=== PATIENT | male | born 1945 | race Caucasian/White ===

== ENCOUNTER 2017-09-21 08:48 | Emergency (ER) | payer MEDICARE, OTHER ==
[~2017-09-21] VITALS: Ht 170.2 cm; Wt 90.0 kg
[~2017-09-21 08:48] MED LIST: ALBU6.7H INH; CEFT500T PO; HYDR12.56 PO; IPRA17I INH; LISI2.5T3 PO; MOME17I; ZITH500T PO
[2017-09-21 08:49] VITALS: BP 173/85; PULSE 77; RESP 18; TEMP 98.6; O2SAT 95
[2017-09-21] MEDS ORDERED: MOME17I EACH NARE (09:10)
[2017-09-21] MEDS ORDERED: COLA100C5 PO ×2 (09:10)
[2017-09-21] MEDS ORDERED: PRAV10TA PO (09:10)
[2017-09-21] MEDS ORDERED: IPRA17I INH (09:10)
[2017-09-21] MEDS ORDERED: LORA0.5T PO (09:10)
[2017-09-21] MEDS ORDERED: ALBU6.7H INH (09:10)
[2017-09-21] MEDS: RESP: ALBUTEROL 2.5 MG/IPRATROPIUM 0.5 MG NEB (SCH) INH ×2 (09:25→09:26)
[2017-09-21] MEDS ORDERED: ZITHTAB PO (09:42)
[2017-09-21] MEDS ORDERED: PRED20 PO (09:42)
--- NOTE | 2017-09-21 09:42 | PD ---
HPI . Coughing and wheezing Chief Complaint: Respiratory Symptoms Time Seen by Provider: 09:07 Travel History International Travel<30 days: No Contact w/Intl Traveler<30days: No Traveled to known affect area: No History of Present Illness HPI This patient presents complaining with coughing and wheezing. He has a history of asthma. His symptoms started about 2 days ago. He is from [place] and states that he was seen in [place] onset of his symptoms 2 days ago and was given a breathing treatment. He has subsequently come here for the [employer]. He states that he was instructed in [place] to come here for a nebulizer treatment when he got here. He states that he chronically uses an albuterol MDI for his asthma. The patient denies any fever but does report recent sputum production. Symptoms are mild and have no modifying factors. PFSH Past Medical History Arthritis: Yes Asthma: Yes Blood Disorders: No Anxiety: Yes Depression: Yes Heart Rhythm Problems: No Cancer: No Cardiovascular Problems: Yes High Cholesterol: Yes Chemotherapy: No Chest Pain: No Congestive Heart Failure: No COPD: No Diabetes: Yes Endocrine: Yes Gastrointestinal Disorders: Yes GERD: Yes Genitourinary: No Hepatitis: No Hiatal Hernia: No Hypertension: Yes Immune Disorder: No Musculoskeletal: Yes Neurologic: No Psychiatric: Yes Reproductive: No Respiratory: Yes (ASTHMA) Myocardial Infarction: No Radiation Therapy: No Sleep Apnea: Yes Thyroid Disease: No Ulcer: Yes Tetanus Vaccination: Unknown Influenza Vaccination: No Past Surgical History Abdominal Surgery: Yes (LEFT HERNIA) Appendectomy: No Cardiac Surgery: No Cholecystectomy: No Ear Surgery: No Endocrine Surgery: No Eye Surgery: No Genitourinary Surgery: No Gynecologic Surgery: No Oral Surgery: No Thoracic Surgery: No Other Surgery: Yes (TESTICLE HERNIA REPAIR) Social History Alcohol Use: Yes (BEER OCCASIONALLY) Tobacco Use: No Substance Use: No Allergies-Medications (Allergen,Severity, Reaction): Coded Allergies: No Known Allergies (Verified Adverse Reaction, Unknown, 09/21/17) Reported Meds & Prescriptions Reported Meds & Active Scripts Active Reported Nasonex Nasal [place] (Mometasone Furoate) 50 Mcg/Act Naspr 1 [place] EACH NARE DAILY Atrovent HFA 12.9 GM Inh (Ipratropium [place]) 17 Mcg/Actuation Aer 2 Puff INH Q4HR PRN Proventil Hfa 6.7 GM Inh (Albuterol Sulfate) 90 Mcg/Act Aer 2 Puff INH Q4H PRN Lorazepam 0.5 Mg Tab 0.5 Mg PO Q6H PRN Colace (Docusate Sodium) 100 Mg Capsule 100 Mg PO BID Colace (Docusate Sodium) 100 Mg Capsule 100 Mg PO HS Pravastatin 10 Mg Tab 10 Mg PO DAILY Nasonex (Mometasone Furoate) 17 Gm [place] 1 Spr NA DAILY Review of Systems Except as stated in HPI: all other systems reviewed are Neg General / Constitutional: No: Fever, Chills Respiratory: Positive: Cough, Wheezing, No: Shortness of Breath Physical Exam Narrative GENERAL: Awake and alert and in no acute distress. SKIN: Warm and dry. HEAD: Normocephalic/atraumatic. EYES: Pupils are equal. Extraocular movements are intact. NECK: Normal range of motion. CARDIOVASCULAR: Regular rate and rhythm. RESPIRATORY: Nonlabored respirations. Good air movement but diffuse coarse expiratory wheezing. MUSCULOSKELETAL: Atraumatic. NEUROLOGICAL: Nonfocal. PSYCHIATRIC: Appropriate mood and affect. Data Data Last Documented VS Vital Signs Date Time Temp Pulse Resp B/P (MAP) Pulse Ox O2 Delivery O2 Flow Rate FiO2 09/21/17 08:49 98.6 77 18 173/85 (114) 95 Room Air Orders Orders Albuterol-Ipratropium Neb (Duoneb Neb) (09/21/17 09:30) [facility] Medical Decision Making Medical Screen Exam Complete: Yes Emergency Medical Condition: Yes Differential Diagnosis My differential diagnosis includes but is not limited to asthma, COPD, bronchitis, pneumonia, CHF Narrative Course This is a patient with asthma who presents complaining with wheezing and purulent sputum production. He looks good. He does have diffuse coarse expiratory wheezing. He will be treated here with 3 DuoNeb times. He will be discharged home since for a Z-Stevie and prednisone. Diagnosis Primary Impression: Acute exacerbation of extrinsic asthma Patient Instructions: Asthma (DC), General Instructions Med/Other Pt SpecificInfo: Prescription(s) given Scripts Prednisone (Prednisone) 20 Mg Tab 60 MG PO DAILY for 5 Days, #15 TAB 0 Refills Prov: Tricia Kaiser MD 09/21/17 Azithromycin (Zithromax Z-Stevie) 250 Mg Dspk 250 MG PO DIRECTED for Infection, #1 DSPK 0 Refills 500 MG (2 tabs) day 1, then 1 tab days 2-5. Prov: Tricia Kaiser MD 09/21/17 Disposition: 01 DISCHARGE HOME Condition: Stable Tricia Kaiser MD Sep 21, 2017 09:42
[2017-09-21 10:03] VITALS: BP 163/69; PULSE 90; RESP 16; O2SAT 95
== END 2017-09-21 10:04 | disposition home or self-care (01) ==
LOC: NEPD 08:48
DX: J45.901 Unspecified asthma with (acute) exacerbation (principal); R05 Cough; E11.9 Type 2 diabetes mellitus without complications; I10 Essential (primary) hypertension
CPT/HCPCS: 94640; 94664; 99283

== ENCOUNTER 2017-09-22 19:19 | Inpatient (IN) | payer MEDICARE ==
[~2017-09-22] VITALS: Ht 170.2 cm; Wt 88.6 kg
[~2017-09-22 19:19] MED LIST changes: -CEFT500T PO; +COLA100C5 PO; -HYDR12.56 PO; -LISI2.5T3 PO; +LORA0.5T PO; +MOME17I EACH NARE; +PRAV10TA PO; +PRED20 PO; -ZITH500T PO; +ZITHTAB PO
[2017-09-22 19:21] VITALS: BP 183/62; PULSE 81; RESP 18; TEMP 97.9; O2SAT 96
[2017-09-22 19:35] VITALS: BP 178/98; PULSE 79; RESP 18; O2SAT 95
--- NOTE | 2017-09-22 19:43 | PD ---
HPI Chief Complaint: Respiratory Symptoms Time Seen by Provider: 19:43 Travel History International Travel<30 days: No Contact w/Intl Traveler<30days: No Traveled to known affect area: No History of Present Illness HPI 71-year-old male with history of CAD, hypertension, asthma, pacemaker placement , stroke with right-sided deficit, presents to the emergency department for evaluation of worsening shortness of breath. Patient is visiting [facility] race week. He came in yesterday for evaluation of what he thought was an asthma exacerbation. He had a cold last week where he had increased cough and chest congestion but this seemed to have gotten better. He denies any fever or chills. States he "feels awful." States it is the skull to take a deep breath. Denies any pain. Denies any other symptoms at this time. PFSH Past Medical History Arthritis: Yes Asthma: Yes Blood Disorders: No Anxiety: Yes Depression: Yes Heart Rhythm Problems: No Cancer: No Cardiovascular Problems: Yes High Cholesterol: Yes Chemotherapy: No Chest Pain: No Congestive Heart Failure: No COPD: No Diabetes: Yes Diminished Hearing: No Endocrine: Yes Gastrointestinal Disorders: Yes GERD: Yes Genitourinary: No Hepatitis: No Hiatal Hernia: No Hypertension: Yes Immune Disorder: No Musculoskeletal: Yes Neurologic: No Psychiatric: Yes Reproductive: No Respiratory: Yes (ASTHMA) Myocardial Infarction: No Radiation Therapy: No Sleep Apnea: Yes Thyroid Disease: No Ulcer: Yes Influenza Vaccination: Yes Past Surgical History Abdominal Surgery: Yes (LEFT HERNIA) Appendectomy: No Cardiac Surgery: No Cholecystectomy: No Ear Surgery: No Endocrine Surgery: No Eye Surgery: No Genitourinary Surgery: No Gynecologic Surgery: No Oral Surgery: No Thoracic Surgery: No Other Surgery: Yes (TESTICLE HERNIA REPAIR) Social History Alcohol Use: Yes (BEER OCCASIONALLY) Tobacco Use: No Substance Use: No Allergies-Medications (Allergen,Severity, Reaction): Coded Allergies: No Known Allergies (Verified Adverse Reaction, Unknown, 09/21/17) Reported Meds & Prescriptions Reported Meds & Active Scripts Active Prednisone 20 Mg Tab 60 Mg PO DAILY 5 Days Zithromax Z-Stevei (Azithromycin) 250 Mg Dspk 250 Mg PO DIRECTED 500 MG (2 tabs) day 1, then 1 tab days 2-5. Reported Nasonex Nasal [place] (Mometasone Furoate) 50 Mcg/Act Naspr 1 [place] EACH NARE DAILY Atrovent HFA 12.9 GM Inh (Ipratropium [place]) 17 Mcg/Actuation Aer 2 Puff INH Q4HR PRN Proventil Hfa 6.7 GM Inh (Albuterol Sulfate) 90 Mcg/Act Aer 2 Puff INH Q4H PRN Lorazepam 0.5 Mg Tab 0.5 Mg PO Q6H PRN Colace (Docusate Sodium) 100 Mg Capsule 100 Mg PO BID Colace (Docusate Sodium) 100 Mg Capsule 100 Mg PO HS Pravastatin 10 Mg Tab 10 Mg PO DAILY Review of Systems Except as stated in HPI: all other systems reviewed are Neg Physical Exam Narrative GENERAL: Well-nourished, chronically ill male patient, sitting in bed, in no acute distress. Audible rales with respirations as a walk in the room. SKIN: Focused skin assessment warm/dry. HEAD: Atraumatic. Normocephalic. Slight right sided facial paralysis. EYES: Pupils equal and round. No scleral icterus. No injection or drainage. ENT: No nasal bleeding or discharge. Mucous membranes pink and moist. NECK: Trachea midline. No JVD. CARDIOVASCULAR: Regular rate and rhythm. RESPIRATORY: No accessory muscle use. Coarse throughout, diminished bases, with crackles. Breath sounds equal bilaterally. GASTROINTESTINAL: Abdomen soft, non-tender, nondistended. Hepatic and splenic margins not palpable. MUSCULOSKELETAL: No obvious deformities. No clubbing. No cyanosis. No edema. NEUROLOGICAL: Awake and alert. No obvious cranial nerve deficits. Motor grossly within normal limits. Normal speech. PSYCHIATRIC: Appropriate mood and affect; insight and judgment normal. Data Data Last Documented VS Vital Signs Date Time Temp Pulse Resp B/P (MAP) Pulse Ox O2 Delivery O2 Flow Rate FiO2 09/22/17 21:11 85 18 161/77 (105) 97 Nasal Cannula 2.00 09/22/17 19:21 97.9 Orders Orders Complete Blood Count With Diff (09/22/17 19:53) Basic Metabolic Panel (Bmp) (09/22/17 19:53) Ckmb (Isoenzyme) Profile (09/22/17 19:53) Troponin I (09/22/17 19:53) Influenzae A/B Antigen (09/22/17 19:53) Iv Access Insert/Monitor (09/22/17 19:53) Electrocardiogram (2/14/18 19:53) Ecg Monitoring (09/22/17 19:53) Oximetry (09/22/17 19:53) Oxygen Administration (09/22/17 19:53) Chest, Single Ap (09/22/17 19:53) Sodium Chloride 0.9% Flush (Ns Flush) (09/22/17 20:00) Methylprednisolone So Succ Inj (Solumedr (09/22/17 20:00) Albuterol-Ipratropium Neb (Duoneb Neb) (09/22/17 20:00) B-Type Natriuretic Peptide (09/22/17 20:05) Labs Laboratory Tests Test 09/22/17 20:05 White Blood Count 9.9 TH/MM3 Red Blood Count 4.50 MIL/MM3 Hemoglobin 14.3 GM/DL Hematocrit 41.7 % Mean Corpuscular Volume 92.8 FL Mean Corpuscular Hemoglobin 31.8 PG Mean Corpuscular Hemoglobin Concent 34.3 % Red Cell Distribution Width 13.4 % Platelet Count 164 TH/MM3 Mean Platelet Volume 8.0 FL Neutrophils (%) (Auto) 78.8 % Lymphocytes (%) (Auto) 14.1 % Monocytes (%) (Auto) 7.0 % Eosinophils (%) (Auto) 0.0 % Basophils (%) (Auto) 0.1 % Neutrophils # (Auto) 7.8 TH/MM3 Lymphocytes # (Auto) 1.4 TH/MM3 Monocytes # (Auto) 0.7 TH/MM3 Eosinophils # (Auto) 0.0 TH/MM3 Basophils # (Auto) 0.0 TH/MM3 CBC Comment DIFF FINAL Differential Comment Blood Urea Nitrogen 16 MG/DL Creatinine 0.88 MG/DL Random Glucose 149 MG/DL Calcium Level 8.7 MG/DL Sodium Level 142 MEQ/L Potassium Level 3.5 MEQ/L Chloride Level 106 MEQ/L Carbon Dioxide Level 27.8 MEQ/L Anion Gap 8 MEQ/L Estimat Glomerular Filtration Rate 85 ML/MIN Total Creatine Kinase 99 U/L Troponin I 0.06 NG/ML B-Type Natriuretic Peptide 160 PG/ML MDM Medical Decision Making Medical Screen Exam Complete: Yes Emergency Medical Condition: Yes Medical Record Reviewed: Yes Differential Diagnosis ACS versus CHF versus pneumonia versus influenza versus COPD exacerbation versus asthma exacerbation Narrative Course 71-year-old male presents to emergency department for evaluation of worsening shortness of breath. Patient appears nontoxic but he does have audible reveals as I walk in the room. His oxygen saturation is 92% on room air and he is placed on 2 L nasal cannula. Vital signs are otherwise stable. Patient is given DuoNeb treatment and Solu-Medrol IV. Laboratory Tests Test 09/22/17 20:05 White Blood Count 9.9 TH/MM3 Red Blood Count 4.50 MIL/MM3 Hemoglobin 14.3 GM/DL Hematocrit 41.7 % Mean Corpuscular Volume 92.8 FL Mean Corpuscular Hemoglobin 31.8 PG Mean Corpuscular Hemoglobin Concent 34.3 % Red Cell Distribution Width 13.4 % Platelet Count 164 TH/MM3 Mean Platelet Volume 8.0 FL Neutrophils (%) (Auto) 78.8 % Lymphocytes (%) (Auto) 14.1 % Monocytes (%) (Auto) 7.0 % Eosinophils (%) (Auto) 0.0 % Basophils (%) (Auto) 0.1 % Neutrophils # (Auto) 7.8 TH/MM3 Lymphocytes # (Auto) 1.4 TH/MM3 Monocytes # (Auto) 0.7 TH/MM3 Eosinophils # (Auto) 0.0 TH/MM3 Basophils # (Auto) 0.0 TH/MM3 CBC Comment DIFF FINAL Differential Comment Blood Urea Nitrogen 16 MG/DL Creatinine 0.88 MG/DL Random Glucose 149 MG/DL Calcium Level 8.7 MG/DL Sodium Level 142 MEQ/L Potassium Level 3.5 MEQ/L Chloride Level 106 MEQ/L Carbon Dioxide Level 27.8 MEQ/L Anion Gap 8 MEQ/L Estimat Glomerular Filtration Rate 85 ML/MIN Total Creatine Kinase 99 U/L Troponin I 0.06 NG/ML B-Type Natriuretic Peptide 160 PG/ML EKG is complete and reviewed with my attending physician. At work and x-ray are completed and also reviewed by myself and my attending. Patient continues to have shortness of breath. Absolutely no pain. Troponin is 0.06. BNP is 160. I discussed the patient with Dr. Waldrop. [facility]. Diagnosis Primary Impression: Dyspnea Qualified Codes: R06.03 - Acute respiratory distress Additional Impression: Elevated troponin Admitting Information Admitting Physician Requests: Observation Condition: Stable Roselyn Jackson Sep 22, 2017 19:43
[2017-09-22] MEDS ORDERED: methylPREDNISolone SOD SUCC 125 MG/2 ML VIAL IV PUSH ONE (20:00)
[2017-09-22] MEDS ORDERED: SODIUM CHLORIDE 0.9% FLUSH 10 ML FLUSH IVF PRN (20:00)
[2017-09-22] MEDS: RESP: ALBUTEROL 2.5 MG/IPRATROPIUM 0.5 MG NEB (SCH) INH ×2 (20:02→20:03)
[2017-09-22 20:37] LABS: AUTOMATED NEUTROPHIL # 7.8 TH/MM3 (1.8-7.7); BASOPHIL % 0.1 % (0.0-2.0); HEMATOCRIT 41.7 % (39.0-51.0); HEMOGLOBIN 14.3 GM/DL (13.0-17.0); LYMPH % 14.1 % (9.0-44.0); LYMPHOCYTE # 1.4 TH/MM3 (1.0-4.8); MEAN CELL VOLUME 92.8 FL (80.0-100.0); MEAN CORPUSCULAR HEMOGLOBIN 31.8 PG (27.0-34.0); MEAN CORPUSCULAR HGB CONC 34.3 % (32.0-36.0); MONOCYTE # 0.7 TH/MM3 (0-0.9); NEUT % 78.8 % (16.0-70.0); PLATELET COUNT 164 TH/MM3 (150-450); RED CELL DISTRIBUTION WIDTH 13.4 % (11.6-17.2); WHITE BLOOD COUNT 9.9 TH/MM3 (4.0-11.0)
--- NOTE | 2017-09-22 20:47 | RADRPT ---
EXAM DATE/TIME: 09/22/2017 20:24 [facility] COMPARISON: No previous studies available for comparison. INDICATIONS : Cough and congestion for 4 days. MEDICAL HISTORY : Hypertension. Hypercholesterolemia. Gastroesophageal reflux disease. Asthma. Arthritis. Diabetes. SURGICAL HISTORY : Pacemaker. ENCOUNTER: Initial ACUITY: 4 - 6 days PAIN SCORE: 0/10 LOCATION: Bilateral chest FINDINGS: The lungs are clear without infiltrate, nodule, or mass. There is no appreciable pleural effusion fo r technique. Heart and mediastinum are unremarkable. Left subclavian transvenous pacer wires are pre sent with tips in the right atrium and right ventricle. CONCLUSION: No acute cardiopulmonary disease. Nithin Marvin MD on September 22, 2017 at 20:46 Board Certified Radiologist. This report was verified electronically.
[2017-09-22 20:55] LABS: BICARBONATE 27.8 MEQ/L (21.0-32.0); CALCIUM 8.7 MG/DL (8.5-10.1); CREATININE 0.88 MG/DL (0.60-1.30)
[2017-09-22 21:00] LABS: TROPONIN I 0.06 NG/ML (0.02-0.05)
[2017-09-22 21:11] VITALS: BP 161/77; PULSE 85; RESP 18; O2SAT 97
[2017-09-22] MEDS ORDERED: NALOXONE HCL 0.4 MG/ML AMP IV PUSH PRN (21:45)
[2017-09-22] MEDS ORDERED: SODIUM CHLORIDE 0.9% FLUSH 10 ML FLUSH IV FLUSH PRN (21:45)
[2017-09-22 21:55] VITALS: O2SAT 97
[2017-09-22] MEDS ORDERED: IOHEXOL 350 MG/ML 10 ML VIAL (for RAD DIAG) IVCONTRAST ONE (22:29)
[2017-09-22] MEDS ORDERED: ASPIRIN 81 MG CHEW TAB CHEW ONE (22:30)
[2017-09-23] VITALS (10 sets, daily range): BP systolic 133–158; BP diastolic 63–90; PULSE 65–77; RESP 18–20; TEMP 97.1–98; O2SAT 94–98
[2017-09-23 04:05] LABS: TROPONIN I 0.06 NG/ML (0.02-0.05)
--- NOTE | 2017-09-23 04:43 | HHI.HP ---
HPI [facility] Primary Care Physician Unknown Admission Diagnosis dyspnea; elevated trop Diagnoses: Travel History International Travel<30 Days: No Contact w/Intl Traveler <30 Da: No Traveled to Known Affected Are: No History of Present Illness short of breath 2 days no fever no n/v/d/ coughing a lot no chest pains or palpitations no perhipheral edema no blood in stool or urine except last week- was straining himself to go - hemorhoid bleed per pt- red color, minimal amoutn no abdominal pain went by plane to [place] from [facility] on wednesday Review of Systems Except as stated in HPI: all other systems reviewed are Neg Past Family Social History Past Medical History htn asthma never been a smoker last ER visit- was couple of years ago pneumonia- 3 yrs ago ppm 3 yrs ago cva- on asa gerd Past Surgical History hernia sx rotator cuff sx Allergies: Coded Allergies: No Known Allergies (Verified Allergy, Unknown, 09/22/17) Family History father- heart problems Social History never smoked drinks etoh a few times a week no drugs Physical Exam Vital Signs Vital Signs Date Time Temp Pulse Resp B/P (MAP) Pulse Ox O2 Delivery O2 Flow Rate FiO2 09/23/17 00:07 97.6 70 20 143/74 (97) 98 09/22/17 21:55 97 Nasal Cannula 2.00 09/22/17 21:11 85 18 161/77 (105) 97 Nasal Cannula 2.00 09/22/17 19:35 79 18 178/98 (124) 95 09/22/17 19:21 97.9 81 18 183/62 (102) 96 Room Air Physical Exam GENERAL: This is a well-nourished, well-developed patient, in no apparent distress. SKIN: No rashes, ecchymoses or lesions. Cool and dry. HEAD: Atraumatic. Normocephalic. No temporal or scalp tenderness. EYES: No scleral icterus. No injection or drainage. ENT: Nose without bleeding, purulent drainage or septal hematoma. Airway patent. NECK: Trachea midline. No JVD Supple, nontender, no meningeal signs. CARDIOVASCULAR: Regular rate and rhythm without murmurs, gallops, or rubs. RESPIRATORY: Upper airway congestion with audible wheezing. GASTROINTESTINAL: Abdomen soft, non-tender, nondistended. No guarding. MUSCULOSKELETAL: Extremities without clubbing, cyanosis, or edema. . No calf tenderness. NEUROLOGICAL: Awake and alert. . Motor and sensory grossly within normal limits. Normal speech. left facial droop chronic Laboratory Laboratory Tests Test 09/22/17 20:05 09/23/17 03:05 White Blood Count 9.9 Red Blood Count 4.50 Hemoglobin 14.3 Hematocrit 41.7 Mean Corpuscular Volume 92.8 Mean Corpuscular Hemoglobin 31.8 Mean Corpuscular Hemoglobin Concent 34.3 Red Cell Distribution Width 13.4 Platelet Count 164 Mean Platelet Volume 8.0 Neutrophils (%) (Auto) 78.8 Lymphocytes (%) (Auto) 14.1 Monocytes (%) (Auto) 7.0 Eosinophils (%) (Auto) 0.0 Basophils (%) (Auto) 0.1 Neutrophils # (Auto) 7.8 Lymphocytes # (Auto) 1.4 Monocytes # (Auto) 0.7 Eosinophils # (Auto) 0.0 Basophils # (Auto) 0.0 CBC Comment DIFF FINAL Differential Comment Blood Urea Nitrogen 16 Creatinine 0.88 Random Glucose 149 Calcium Level 8.7 Sodium Level 142 Potassium Level 3.5 Chloride Level 106 Carbon Dioxide Level 27.8 Anion Gap 8 Estimat Glomerular Filtration Rate 85 Total Creatine Kinase 99 81 Troponin I 0.06 0.06 B-Type Natriuretic Peptide 160 Date/Time Source Procedure Growth Status 09/22/17 20:05 Nasal Washing Influenza Types A,B Antigen (KIZZY) - Final NEGATIVE FOR FLU A AND B ANTIGEN.... Complete Result Diagram: 09/22/17200409/22/172004 Imaging Last [address] Angiography 09/23/17 0000 Signed Impressions: Service Date/Time: September 05:12 - CONCLUSION: 1. No PE. 2. Dependent atelectatic changes are seen with left lower lobe pleural-based nodular focus likely related however followup CT chest in 3 months recommended. 3. Hiatal hernia. 4. Atherosclerosis. 5. Subtle right upper lobe ground glass infiltrate. Richie Sanches MD Chest X-Ray 09/22/171952 Signed Impressions: Service Date/Time: Friday, September 22, 2017 20:24 - CONCLUSION: No acute cardiopulmonary disease. MD Alissa Yarbrough VTE Risk Assessment Alissa VTE Risk Assessment: Mod/High Risk (score >= 2) Caprini Risk Assessment Model Point Value = 1 Point Value = 2 Point Value = 3 Point Value = 5 Age 41-60 Minor surgery BMI > 25 kg/m2 Swollen legs Varicose veins or History of unexplained or recurrent spontaneous Oral contraceptives or hormone replacement Sepsis (< 1 month) Serious lung disease, including pneumonia (< 1 month) Abnormal pulmonary function Acute myocardial infarction Congestive heart failure (< 1 month) History of inflammatory bowel disease Medical patient at bed rest Age 61-74 Arthroscopic surgery Major open surgery (> 45 min) Laparoscopic surgery (> 45 min) Malignancy Confined to bed (> 72 hours) Immobilizing plaster cast Central venous access Age >= 75 History of VTE Family history of VTE Factor V Leiden Prothrombin [id number] Lupus anticoagulant Anticardiolipin antibodies Elevated serum homocysteine Heparin-induced thrombocytopenia Other congenital or acquired thrombophilia Stroke (< 1 month) Elective arthroplasty Hip, pelvis, or leg fracture Acute spinal cord injury (< 1 month) Prophylaxis Regimen Total Risk Factor Score Risk Level Prophylaxis Regimen 0-1 Low Early ambulation 2 Moderate Order ONE of the following: *Sequential Compression Device (SCD) *Heparin 5000 units SQ BID 3-4 Higher Order ONE of the following medications: *Heparin 5000 units SQ TID *Enoxaparin/Lovenox 40 mg SQ daily (WT < 150 kg, CrCl > 30 mL/min) *Enoxaparin/Lovenox 30 mg SQ daily (WT < 150 kg, CrCl > 10-29 mL/min) *Enoxaparin/Lovenox 30 mg SQ BID (WT < 150 kg, CrCl > 30 mL/min) AND/OR *Sequential Compression Device (SCD) 5 or more Highest Order ONE of the following medications: *Heparin 5000 units SQ TID (Preferred with Epidurals) *Enoxaparin/Lovenox 40 mg SQ daily (WT < 150 kg, CrCl > 30 mL/min) *Enoxaparin/Lovenox 30 mg SQ daily (WT < 150 kg, CrCl > 10-29 mL/min) *Enoxaparin/Lovenox 30 mg SQ BID (WT < 150 kg, CrCl > 30 mL/min) AND *Sequential Compression Device (SCD) Assessment and Plan Assessment and Plan Impression: asthma exacerbation suspects early pneumonia possible PE with recent travels htn asthma never been a smoker last ER visit- was couple of years ago pneumonia- 3 yrs ago ppm 3 yrs ago cva- on asa gerd Plan: Nebulizers scheduled and when necessary. Steroids tapering dose. pt needs nebulizer machine at home tapering steroids dose levofloxacin Discussed Condition With Patient, ER physician Rui Waldrop MD Sep 23, 2017 04:43
[2017-09-23] MEDS ORDERED: LORazepam 0.5 MG TAB PO PRN (04:45)
--- NOTE | 2017-09-23 05:33 | RADRPT ---
EXAM DATE/TIME: 09/23/2017 05:12 [facility] COMPARISON: CHEST SINGLE AP, September 22, 2017, 20:24. INDICATIONS : Short of breath for two days. IV CONTRAST: 70 cc Omnipaque 350 (iohexol) IV RADIATION DOSE: 21.45 CTDIvol (mGy) MEDICAL HISTORY : Hypertension. SURGICAL HISTORY : Pacemaker. ENCOUNTER: Initial ACUITY: 2 days PAIN SCALE: 0/10 LOCATION: chest TECHNIQUE: Volumetric scanning of the chest was performed using a pulmonary embolism protocol MIP images were re constructed. Using automated exposure control and adjustment of the mA and/or kV according to patien t size, radiation dose was kept as low as reasonably achievable to obtain optimal diagnostic quality images. DICOM format image data is available electronically for review and comparison. Follow-up recommendations for detected pulmonary nodules are based at a minimum on nodule size and pa tient risk factors according to Fleischner Society Guidelines. FINDINGS: There are dependent atelectatic changes seen at the lung bases. There is a subtle groundglass infiltr ate in the right upper lobe. In the left lower lobe a pleural based nodular focus is seen measuring 1 .3 cm which may be related to adjacent atelectasis. No pleural effusions. There is a large hiatal her kenny. Left atrium appears prominent, and there is coronary artery calcification. There is no evidence of pulmonary embolus. CONCLUSION: 1. No PE. 2. Dependent atelectatic changes are seen with left lower lobe pleural-based nodular focus likely rel ated however followup CT chest in 3 months recommended. 3. Hiatal hernia. 4. Atherosclerosis. 5. Subtle right upper lobe ground glass infiltrate. Richie Sanches MD on September 23, 2017 at 5:27 Board Certified Radiologist. This report was verified electronically.
[2017-09-23] MEDS: methylPREDNISolone SOD SUCC 40 MG/1 ML VIAL IV PUSH SCH ×4 (05:43→23:39)
[2017-09-23] MEDS: PRAVASTATIN SOD 10 MG TAB PO SCH (09:00)
[2017-09-23] MEDS: PANTOPRAZOLE SOD 40 MG DELAYED RELEASE TAB PO SCH (09:00)
[2017-09-23] MEDS: LOSARTAN 25 MG TAB PO SCH (09:00)
[2017-09-23] MEDS ORDERED: ASPIRIN 81 MG CHEW TAB CHEW SCH (09:00)
[2017-09-23] MEDS: DOCUSATE SODIUM 100 MG CAP PO SCH ×2 (09:03→21:37)
[2017-09-23] MEDS: LEVOFLOXACIN 750 MG TAB PO SCH (09:03)
[2017-09-23] MEDS: SODIUM CHLORIDE 0.9% FLUSH 10 ML FLUSH IV FLUSH SCH ×2 (09:05→21:37)
[2017-09-23] MEDS: FLUTICASONE PROPIONATE 50 MCG/ACT 16 GM NASAL SPRAY EACH NARE SCH (09:11)
[2017-09-23 11:23] LABS: TROPONIN I 0.08 NG/ML (0.02-0.05)
--- NOTE | 2017-09-23 17:44 | HHI.PR ---
Subjective Remarks Patient reports that shortness of breath has improved, and he would like to go home. However, he reports dull substernal chest discomfort since admission, says this seems to have improved as well. Objective Vital Signs Date Time Temp Pulse Resp B/P (MAP) Pulse Ox O2 Delivery O2 Flow Rate FiO2 09/23/17 17:19 67 09/23/17 16:24 98.0 72 20 149/83 (105) 95 09/23/17 13:01 97.8 72 20 156/80 (105) 95 09/23/17 08:07 Nasal Cannula 2.00 09/23/17 08:00 97.9 68 18 149/87 (107) 97 09/23/17 04:00 97.8 70 18 133/63 (86) 97 09/23/17 00:07 97.6 70 20 143/74 (97) 98 09/22/17 21:55 97 Nasal Cannula 2.00 09/22/17 21:11 85 18 161/77 (105) 97 Nasal Cannula 2.00 09/22/17 19:35 79 18 178/98 (124) 95 09/22/17 19:21 97.9 81 18 183/62 (102) 96 Room Air I/O 09/22/17 09/22/17 09/22/17 09/23/17 09/23/17 09/23/17 07:00 15:00 23:00 07:00 15:00 23:00 Intake Total 0 ml Output Total 250 ml Balance -250 ml Intake IV Total 0 ml Output Urine Total 250 ml Result Diagram: 09/22/17200409/22/172004 Objective Remarks GENERAL: Patient sitting up in bed. Appears palpable. Alert and oriented 3. SKIN: Warm and dry. HEAD: Normocephalic. EYES: No scleral icterus. No injection or drainage. NECK: Supple, trachea midline. No JVD. CARDIOVASCULAR: Regular rate and rhythm without murmurs, gallops, or rubs. RESPIRATORY: Breath sounds equal bilaterally. No accessory muscle use. GASTROINTESTINAL: Abdomen soft, non-tender, nondistended. MUSCULOSKELETAL: No cyanosis, or edema. BACK: Nontender without obvious deformity. No CVA tenderness. A/P Assessment and Plan Patient reports that shortness of breath has improved, and he would like to go home. However, he reports dull substernal chest discomfort since admission, says this seems to have improved as well. Reports a stress test 6 years ago which was okay. He does have a history of pacemaker. Troponins mildly elevated , and T-wave inversions laterally on EKG. Will order myocardial perfusion scan for the morning. Continue treatment for COPD exacerbation = Likely discharge home tomorrow with steroid taper if myocardial perfusion scan is low risk, and cleared by cardiology. Francisco Rosario MD Sep 23, 2017 17:44
[2017-09-23] MEDS ORDERED: DOCUSATE SODIUM 100 MG CAP PO SCH (21:00)
[2017-09-23] MEDS: RESP: ALBUTEROL 2.5 MG/IPRATROPIUM 0.5 MG NEB (PRN) NEB (22:50)
[2017-09-24] VITALS (10 sets, daily range): BP systolic 135–160; BP diastolic 62–90; PULSE 60–78; RESP 20; TEMP 97.1–98.2; O2SAT 95–98
[2017-09-24] MEDS: methylPREDNISolone SOD SUCC 40 MG/1 ML VIAL IV PUSH SCH (05:27)
--- NOTE | 2017-09-24 06:47 | MB ---
cc: TAD FERNANDEZ M.D. DATE OF CONSULTATION 09/23/2017 REASON FOR CONSULTATION Ty is a very pleasant 71-year-old gentleman with coronary artery disease, hypertension, asthma, pacemaker placement, history of CVA with right-sided hemiparesis who presents with a chief complaint of shortness of breath, congestion, cough, nonproductive, feels better since admission. Otherwise, denies any fevers or chills, GI or bleeding. PAST MEDICAL HISTORY Per history of present illness. Also has a history of: 1. Arthritis 2. Asthma 3. Anxiety/depression 4. Hyperlipidemia 5. Diabetes SOCIAL HISTORY Drinks beer occasionally. Denies tobacco use. ALLERGIES None MEDICATIONS In the hospital: 1. Aspirin 162 daily which has been be discontinued. 2. Docusate 100 mg twice a day 3. Pravastatin 10 mg daily 4. Amlodipine 10 mg daily 5. Losartan 25 mg daily 6. Levaquin 750 mg daily 7. Pantoprazole 40 mg daily 8. Methylprednisolone 40 mg IV q. 6 hours. PHYSICAL EXAM VITAL SIGNS: Blood pressure 149/83, pulse 72, respiratory rate 20, temperature 98.0 sats 97% on two liters. GENERAL: He is alert and oriented times three in no acute distress. NECK: Supple, no JVD, no bruits. CARDIOVASCULAR: S1 and S2. No murmurs, rubs or gallops. LUNGS: Clear to auscultation bilaterally. ABDOMEN: Soft, nontender, and nondistended with positive bowel sounds. EXTREMITIES: Without clubbing, cyanosis or edema. LABORATORY DATA White count 9.9, hemoglobin 14.3, hematocrit 31.7, platelet count 164, troponin is 0.06, followed by 0.06, and 0.08. BNP is 116. Sodium 142, potassium 3.5, chloride 106, bicarb 27.8, BUN 16, creatinine 0.88. EKG normal sinus rhythm at 74 beats per minute, T-wave inversion in leads V4, V5 and V6. Repeat EKG shows normal sinus rhythm at 64 beats per minute, T-wave inversion in leads V3, V4, V5 and V6. CT angio of the chest cannot be obtained today. FINAL DIAGNOSIS 1. Non-STEMI 2. [place] Cardiovascular [employer] Class IV angina. 3. Coronary disease 4. Permanent pacemaker 5. Hypertension 6. History of CVA. DISCUSSION At this point in time, I do think left heart catheterization is medically necessary due to the non-STEMI resting ischemic changes on EKG and history of coronary artery disease and unstable symptoms of shortness of breath. Agree with Pravastatin, amlodipine and Losartan. The patient has received aspirin, but this has been discontinued for an indeterminate reason. MD RICARDO Griffin/NABEEL /7:42 PM /6:29 AM
[2017-09-24 07:12] LABS: HEMOGLOBIN 13.2 GM/DL (13.0-17.0); MEAN CELL VOLUME 93.5 FL (80.0-100.0); MEAN CORPUSCULAR HEMOGLOBIN 32.5 PG (27.0-34.0); MEAN CORPUSCULAR HGB CONC 34.7 % (32.0-36.0); MEAN PLATELET VOLUME 8.5 FL (7.0-11.0); PLATELET COUNT 151 TH/MM3 (150-450); RED BLOOD COUNT 4.06 MIL/MM3 (4.50-5.90); WHITE BLOOD COUNT 9.5 TH/MM3 (4.0-11.0)
[2017-09-24 07:29] LABS: CALCIUM 8.3 MG/DL (8.5-10.1); CREATININE 0.7 MG/DL (0.60-1.30); MAGNESIUM 2.3 MG/DL (1.5-2.5)
[2017-09-24] MEDS: SODIUM CHLORIDE 0.9% FLUSH 10 ML FLUSH IV FLUSH SCH ×3 (09:20→20:35)
[2017-09-24] MEDS: LEVOFLOXACIN 750 MG TAB PO SCH (09:20)
[2017-09-24] MEDS: DOCUSATE SODIUM 100 MG CAP PO SCH ×2 (09:20→20:34)
[2017-09-24] MEDS: PANTOPRAZOLE SOD 40 MG DELAYED RELEASE TAB PO SCH (09:20)
[2017-09-24] MEDS: LOSARTAN 25 MG TAB PO SCH (09:20)
[2017-09-24] MEDS: FLUTICASONE PROPIONATE 50 MCG/ACT 16 GM NASAL SPRAY EACH NARE SCH (09:20)
[2017-09-24] MEDS: PRAVASTATIN SOD 10 MG TAB PO SCH (09:20)
[2017-09-24] MEDS ORDERED: MIDAZOLAM HCL 2 MG/2 ML VIAL ONE (09:34)
[2017-09-24] MEDS ORDERED: HEPARIN SODIUM - IV 10,000 UNITS/10 ML VIAL ONE (10:14)
[2017-09-24] MEDS ORDERED: CLOPIDOGREL 300 MG TAB ONE (10:39)
[2017-09-24] MEDS ORDERED: TIROFIBAN INFUSION INJ 250 ML IV ONE (10:39)
[2017-09-24] MEDS: TIROFIBAN INFUSION INJ 250 ML IV SCH ×3 (10:45→23:32)
[2017-09-24] MEDS ORDERED: MISC INFORMATION XX ONE (11:00)
[2017-09-24] MEDS ORDERED: SODIUM CHLORIDE 0.9% FLUSH 10 ML FLUSH IV FLUSH PRN (11:00)
--- NOTE | 2017-09-24 11:07 | CATHPROC ---
[employer] HIS Report Study Information Study Number Admission Scheduled Start Study Start [id number] Sep 22 2017 10:28PM 09/24/2017 Sep 24 2017 9:12AM [place] [facility] Cardiac Catheterization Admit Source Facility Department Emergency department [facility] Physician and Clinical Staff Initial Michele Cook Instrument Person Orin Vines,GENIE Recorder Jo-Ann Akhtar,RT(R) Scrub Jade Jack,RT(R) (BS) Procedures Performed Procedure Location (Site) Vessel Name Coronary Angiograms LCA Left Coronary Coronary Angiograms RCA Right Coronary L Heart Cath LV Gram-hand inj. LV LV Ventricle PTCA RCA Ost Right Coronary Stent RCA Ost Right Coronary Wire insertion Fem Art (right) Femoral Art Equipment Time Ms Sql Server Developer Description Size Mfg Part Number Used/Scraped [id number] 10:12 [employer] WIRE, [employer] PROWATER 180CM 180CM Used *[id number] TRANSDUCER, TRUWAVE [id number] 09:18 GOODE WANG * Used W/STOCKCOCK *[id number] [id number] *[id number] [id number] *[id number] *[id number] 09:18 [employer] INDUSTRIES PACK, CCL CUSTOM * Used *[id number] 09:18 [employer] PACER PEN, SKIN DUAL W/ RULER * Used *[id number] 10:20 MEDTRON[employer] BALLOON, 2.0 X 12MM EUPHORA 12MM Used *[id number] BALLOON, 2.5 X 20MM NC [id number] 10:23 MEDTRONIC 20MM Used EUPHORA *[id number] BALLOON, 3.0 X 15MM NC [id number] 10:36 MEDTRONIC 15MM Used EUPHORA *[id number] BALLOON, 3.0 X 20MM NC [id number] 10:26 MEDTRONIC 20MM Used EUPHORA *[id number] 10:29 MEDTRONIC STENT, 3.0 18 INTEGRITY 3.0 18 Used *[id number] 10:21 [employer] MEDICAL 30 KATERYNA INDEFLATOR Used *[id number] 10:12 [employer] MED[employer] SHEATH, FR6.5 PRELUDE 11CM FR 6.5 038ACT Used *[id number] 09:18 [employer] WIRE, 3MMJ .035 180CM 180CM Used *[id number] 09:18 NAMIC MANIFOLD, 4 PORT * Used *[id number] 09:18 [employer]COMED OMNIPAQUE, 350 MG, 150ML 150ML [id number] Used [id number] 09:18 GALE[employer] BLANKET,WARM AIR CCL * Used *[id number] 09:18 TERUMO MEDICAL SHEATH, FR4 TERUMO (10CM) FR 4 Used *[id number] Equipment Model, Serial, Lot Number and Expiration Data Description Model Number Serial Number Lot Number Expiration Date STENT, 3.0 18 INTEGRITY [id number] 02-26-2019 History: Current Medications Medication Dosage/Unit Route Frequency Last Date/Time Taken HARDY HURT History: Allergies Allergy Reaction No Known Allergies History: Risk Factors Family History of Hypertension Dyslipidemia Previous MO Previous Heart Failure Premature CAD Yes Yes Yes No No Prior Valve Prior PCI Prior CABG Surgery No No No Cerebrovascular Peripheral Artery Chronic Lung On Dialysis Diabetes Disease Disease Disease No Yes No Yes No History: Symptoms/Diagnosis Selection Items SOB History: Other Current Smoker No Labs Hgb (g/dl) Hct (%) WBC (l/cumm) Platelets (thousands) 11.60-17.00 35.00-51.00 4.00-11.00 150.00-450.00 13.2 38 9.5 151 Glucose (mg/dl) BUN (mg/dl) Creatinine (mg/dl) BUN:Creatinine (1:x) 74.00-106.00 7.00-18.00 0.50-1.30 10.00-20.00 143 25 0.7 35.7 Na (meq/l) K (meq/l) 136.00-145.00 3.50-5.10 142 4 Troponin I (ng/ml) CPK-MB (ng/ML) 0.02-0.05 0.50-3.60 0.08 Not Drawn Medication Medication Total Dose (Bolus/Oral) Medication Total Dosage/Unit 1% XYLOCAINE 20 mL AGGRASTAT BOLUS 45.1 mL HEPARIN 7800 units PLAVIX 600 mg VERSED 1 mg Medications (Bolus/Oral) Medication Time Given Dosage/Unit Administered By Reason 1% XYLOCAINE 09/24/2017 9:42:19 AM 20 mL Michele David 20 mL 1% XYLOCAINE given in lab by Michele David in Right Groin via Subcutaneous. VERSED 09/24/2017 9:43:06 AM 1 mg Orin Vines 1 mg VERSED given in lab by Orin Vines RN in Left Antecubital via Peripheral IV. Ordered by Michele Pendleton. HEPARIN 09/24/2017 10:15:52 AM 6300 units Orin Vines 6300 units HEPARIN given in lab by Orin Vines RN in Left Antecubital via Peripheral IV. Ordered by Michele David. HEPARIN 09/24/2017 10:28:35 AM 1500 units Orin Vines 1500 units HEPARIN given in lab by Orin Vines RN in Left Antecubital via Peripheral IV. Ordered by Michele David. AGGRASTAT BOLUS 09/24/2017 10:45:40 AM 45.1 mL Orni Vines 45.1 mL AGGRASTAT BOLUS given in lab by Orin Vines RN in Left Antecubital via Peripheral IV. Ord ered by Michele David. PLAVIX 09/24/2017 10:58:58 AM 600 mg Orin Vines 600 mg PLAVIX given in lab by Orin Vines RN via Oral. Ordered by Michele David. Medication (Drip) Medication Time Given Dosage/Unit Concentration/Unit Diluent (ml) Solution AGGRASTAT DRIP 09/24/2017 10:46:30 AM 0.149 mcg/kg/min 12.5 mg 250 NaCl .9 0.149 mcg/kg/min AGGRASTAT DRIP given in lab by Orin Vines RN in Left Antecubital via Peripheral IV. Pump/Drip Flow = 16.2 ml/hr using NaCl .9 with a concentration of 12.5 mg in 250 ml. Ordered by Michele David. IV Solutions 09/24/2017 9:16:25 AM 50 mL (IV) NaCl .9 IV Solutions given in lab by Orin Vines RN in Left Antecubital via Peripheral IV. Pump/Drip Flow using NaCl .9. Initial Case Assessment Cardiovascular HR Rhythm NIBP Chest Pain 64 SR 143/83 0 Edema Present Skin color Skin None Normal Warm Dry Circulatory - Right Pulses Dorsalis Pedis Femoral 1 2 Scale (0,1,2,3,4,d) Circulatory - Left Pulses Dorsalis Pedis Femoral 1 2 Scale (0,1,2,3,4,d) Neurological State Oriented to time-place- Alert Moves all extremities person Respiration - General Respiration Rate SpO2 (%) (B/min) 16 96 Chronological Log Time Study Chronological Log 9:13:06 Patient arrived via Bed. 9:16:05 Patient Name, D.O.B, / Armband Verified By R.N. 9:16:05 Consent signed by the physician and the patient and verified by the [facility] staff. 9:16:06 Pre-op and post- op instructions given; patient acknowledges understanding of instructions. 9:16:07 Verbal Stimulation=2 Physical Stimulation=2 Airway=2 Respiration=2 TOTAL=8. (0=absent, 1=li mited, 2=present) 9:16:08 Presedation assessment performed by Housemaid RN. 9:16:19 Patient has been NPO for More than 6Hrs. 9:16:20 Skin Breakdown- none per pt 9:16:20 Patient Warmer Placed on the Table. 9:16:21 Néstor Prominences Protected 9:16:24 A # 20 IV was noted in the Antecubital (left). Grade = 0 9:16:25 IV Solutions given in lab by Orin Vines, RN in Left Antecubital via Peripheral IV. Pump /Drip Flow using NaCl .9. 9:16:26 History and physical on the chart or being dictated. Assessment: Initial Case, HR=64 BPM, Rhythm=SR, QNXD=959/83 mmhg, Chest Pain=0, Edema=None, Col or=Normal, Skin = Warm, Dry Right Pulses: Shakir Ped=1, Femoral=2 9:16:26 Left Pulses: Shakir Ped=1, Femoral=2 Neurological: State=Alert, Ox3, BLAKE Respiration: Resp=16 B/min, SpO2=96 % 9:20:19 Reference ECG taken Vitals capture started with the following parameters, Patient=Adult, Interval=5 min, Initial Pr qqhvkl=782 mmHg, 9:23:27 Deflation Rate=5 mmHg, Cuff placed on Left Arm 9:24:11 HR=62 bpm, JLOM=015/83 mmhg, SpO2=95.0 %, Resp=20 B/min 9:27:30 pagecharis 9:29:10 HR=63 bpm, XDSS=008/84 mmhg, SpO2=96.0 %, Resp=17 B/min 9:29:37 MD responded 9:33:48 Pressure channel 1 zeroed. 9:34:11 HR=64 bpm, LQCN=050/83 mmhg, SpO2=96.0 %, Resp=18 B/min 9:39:10 HR=61 bpm, DNSJ=153/80 mmhg, SpO2=95 %, Resp=16 B/min 9:39:40 MD arrived. Time Out. Correct patient, correct procedure, correct physician, power injector not loaded with contrast with surgical 9:41:52 team present. Time Out Concurred by MD and individual staff in procedure. 9:42:14 Case Start 9:42:19 20 mL 1% XYLOCAINE given in lab by Michele David in Right Groin via Subcutaneous. 9:43:06 1 mg VERSED given in lab by Orin Vines, RN in Left Antecubital via Peripheral IV. Ordere d by Michele David. 9:44:11 HR=70 bpm, THWH=909/86 mmhg, SpO2=95.0 %, Resp=22 B/min 9:44:20 Access site was Right Femoral Artery. 9:44:27 A SHEATH, FR4 TERUMO (10CM) FR 4 was advanced into the Fem Art (right) using the Percutaneou s technique. A JR 4.0 INFINITI CATHETER FR 4 was advanced over a wire. OMNIPAQUE, 350 MG, 150ML 150ML was us ed for 9:44:55 injections. Recorded Pressure: LV, HR=66, Condition=Condition 1 9:46:09 (Left Ventricle) LV 144/13/32 9:46:23 The LV was manually injected with 6 cc's and visualized. OMNIPAQUE, 350 MG, 150ML 150ML used . Recorded Pressure: LV, Ao, HR=65, Condition=Condition 1 9:46:29 (Left Ventricle) LV 144/18/31, (Aorta) Ao 143/74/103 9:47:27 The RCA was injected and visualized at various angles. OMNIPAQUE, 350 MG, 150ML 150ML used. 9:48:45 Catheter was removed A JL 4.0 INFINITI CATHETER FR 4 was advanced over a wire. OMNIPAQUE, 350 MG, 150ML 150ML was us ed for 9:48:54 injections. Recorded Pressure: Ao, HR=69, Condition=Condition 1 9:48:59 (Aorta) Ao 140/73/101 9:49:12 HR=67 bpm, IBBB=566/90 mmhg, SpO2=95 %, Resp=21 B/min 9:49:42 The LCA was injected and visualized at various angles. OMNIPAQUE, 350 MG, 150ML 150ML used. 9:51:14 Catheter was removed 9:53:12 Dr Cisneros called for CV consult, waiting for him to arrive. 9:54:11 HR=66 bpm, RZPQ=349/85 mmhg, SpO2=94.0 %, Resp=20 B/min 9:59:12 HR=66 bpm, ZGBJ=578/83 mmhg, SpO2=94.0 %, Resp=18 B/min 10:04:12 HR=65 bpm, SGWW=417/85 mmhg, SpO2=94.0 %, Resp=22 B/min 10:09:41 HR=62 bpm, YYWE=723/85 mmhg, SpO2=95.0 %, Resp=20 B/min 10:14:12 HR=66 bpm, NBKO=626/89 mmhg, SpO2=95.0 %, Resp=20 B/min A SHEATH, FR6.5 PRELUDE 11CM FR 6.5 was exchanged in the Fem Art (right). This was necessary in order to 10:15:32 accomodate a larger catheter. 6300 units HEPARIN given in lab by Orin Vines, GENIE in Left Antecubital via Peripheral IV. Or dered by Frankie, 10:15:52 Michele. A JR 4.0 SH GUIDE CATHETER FR 6 was advanced over a wire. OMNIPAQUE, 350 MG, 150ML 150ML was us ed for 10:16:23 injections. 10:16:43 Disposable Defibrillator Pads Placed On Patient. 10:18:17 A WIRE, ASAHI PROWATER 180CM 180CM was inserted via Fem Art (right). 10:18:57 Interventional wire has crossed the lesion 10:19:13 HR=66 bpm, PZKV=042/88 mmhg, SpO2=94.0 %, Resp=16 B/min A BALLOON, 2.0 X 12MM EUPHORA 12MM was inserted over WIRE, ASAHI PROWATER 180CM 180CM via the F em Art 10:19:43 (right). A BALLOON, 2.0 X 12MM EUPHORA 12MM over a WIRE, ASAHI PROWATER 180CM 180CM in the RCA Ost was i nflated 10:21:00 using a 30 KAETRYNA INDEFLATOR at 18 kateryna for 18 sec. 10:21:07 Activated Clotting Time Drawn A BALLOON, 2.0 X 12MM EUPHORA 12MM over a WIRE, ASAHI PROWATER 180CM 180CM in the RCA Ost was i nflated 10:21:31 using a 30 KATERYNA INDEFLATOR at 17 kateryna for 10 sec. A BALLOON, 2.0 X 12MM EUPHORA 12MM over a WIRE, ASAHI PROWATER 180CM 180CM in the RCA Ost was i nflated 10:22:22 using a 30 KATERYNA INDEFLATOR at 8 kateryna for 10 sec. 10:22:46 Balloon Removed. 10:24:14 HR=68 bpm, ARIM=671/79 mmhg, SpO2=95.0 %, Resp=17 B/min A BALLOON, 2.5 X 20MM NC EUPHORA 20MM was inserted over WIRE, ASAHI PROWATER 180CM 180CM via th e Fem 10:24:57 Art (right). A BALLOON, 2.5 X 20MM NC EUPHORA 20MM over a WIRE, ASAHI PROWATER 180CM 180CM in the RCA Ost wa s 10:25:04 inflated using a 30 KATERYNA INDEFLATOR at 18 kateryna for 18 sec. 10:26:18 Balloon Removed. 10:27:40 ACT (Normal Range 90-180) = 245 A BALLOON, 3.0 X 20MM NC EUPHORA 20MM was inserted over WIRE, ASAHI PROWATER 180CM 180CM via th e Fem 10:27:43 Art (right). A BALLOON, 3.0 X 20MM NC EUPHORA 20MM over a WIRE, ASAHI PROWATER 180CM 180CM in the RCA Ost wa s 10:28:25 inflated using a 30 KATERYNA INDEFLATOR at 17 kateryna for 15 sec. 1500 units HEPARIN given in lab by Orin Vines, RN in Left Antecubital via Peripheral IV. Or dered by Frankie, 10:28:35 Michele. 10:28:52 Balloon Removed. 10:29:11 HR=67 bpm, EJXC=853/89 mmhg, SpO2=94.0 %, Resp=17 B/min An STENT, 3.0 18 INTEGRITY 3.0 18 Bare Metal Stent was inserted through a JR 4.[address] FR 6 over a 10:30:24 WIRE, ASAHI PROWATER 180CM 180CM. A STENT, 3.0 18 INTEGRITY 3.0 18 was deployed using a 30 KATERYNA INDEFLATOR at 16 atmospheres for 1 5 seconds in 10:32:26 the RCA Ost. 10:32:44 Delivery device removed 10:34:14 HR=66 bpm, LJRE=554/89 mmhg, SpO2=96 %, Resp=17 B/min A BALLOON, 3.0 X 15MM NC EUPHORA 15MM was inserted over WIRE, ASAHI PROWATER 180CM 180CM via th e Fem 10:36:49 Art (right). A BALLOON, 3.0 X 15MM NC EUPHORA 15MM over a WIRE, ASAHI PROWATER 180CM 180CM in the RCA Ost wa s 10:37:53 inflated using a 30 KATERYNA INDEFLATOR at 14 kateryna for 15 sec. 10:38:30 Balloon Removed. 10:39:15 HR=67 bpm, NJAM=123/79 mmhg, SpO2=95.0 %, Resp=20 B/min 10:39:36 Catheter was removed 10:39:38 Wire removed 10:39:42 Case End 10:39:45 Activated Clotting Time Drawn 10:41:21 In the Fem Art (right) the SHEATH, FR6.5 PRELUDE 11CM FR 6.[address] by Michele Edmonds. 10:41:26 Sterile dressing applied to site 10:41:29 No case complications noted. 10:41:31 Cine recording checked. 10:41:33 Bedside Report will be given. 10:41:34 Implantable Device card placed in patient's chart. 10:41:39 Contrast Scanned 10:41:40 A Left Heart Cath was performed. 10:44:18 HR=67 bpm, UTYS=737/88 mmhg, SpO2=95.0 %, Resp=20 B/min 45.1 mL AGGRASTAT BOLUS given in lab by Orin Vines, RN in Left Antecubital via Peripheral IV. Ordered by 10:45:40 Michele David. 0.149 mcg/kg/min AGGRASTAT DRIP given in lab by Orin Vines, RN in Left Antecubital via Per ipheral IV. 10:46:30 Pump/Drip Flow = 16.2 ml/hr using NaCl .9 with a concentration of 12.5 mg in 250 ml. Ordered b y Michele David. 10:46:32 ACT (Normal Range 90-180) = 280 10:49:17 HR=63 bpm, FKGW=777/87 mmhg, SpO2=95.0 %, Resp=17 B/min 10:54:16 HR=67 bpm, TTNT=578/93 mmhg, SpO2=95.0 %, Resp=20 B/min 10:58:58 600 mg PLAVIX given in lab by Orin Vines, RN via Oral. Ordered by Michele David. 10:59:19 Vitals capture stopped. 11:00:00 Patient moved to [facility] End Study - Contrast Media Used In Study Contrast Total Opened (mL) Total Used (mL) Total Wasted (mL) Omnipaque 115 115 0 End Study - Maximum Contrast Load Max Contrast Load (mL) 649.4 End Study - Radiation Exposure Fluoro Time (minutes) 10.8 End Study - Patient Disposition Complications Transferred To Interventional Outcome No Telemetry Bed successful
[2017-09-24] MEDS ORDERED: CLOPIDOGREL 300 MG TAB PO ONE (12:00)
--- NOTE | 2017-09-24 15:07 | HHI.PR ---
Subjective Remarks Patient seen this afternoon after cardiac catheterization. Denies any chest pain. Reports shortness of breath stable. Objective Vital Signs Date Time Temp Pulse Resp B/P (MAP) Pulse Ox O2 Delivery O2 Flow Rate FiO2 09/24/17 11:15 63 Room Air 09/24/17 08:44 98.2 20 138/62 (87) 98 09/24/17 08:00 60 09/24/17 04:11 97.1 62 20 135/74 (94) 96 09/24/17 00:00 67 09/23/17 23:32 97.1 68 20 142/78 (99) 94 09/23/17 20:33 97.8 77 20 158/90 (112) 94 09/23/17 19:33 97 Nasal Cannula 2.00 09/23/17 18:27 65 09/23/17 17:19 67 09/23/17 16:24 98.0 72 20 149/83 (105) 95 I/O 09/23/17 09/23/17 09/23/17 09/24/17 09/24/17 09/24/17 07:00 15:00 23:00 07:00 15:00 23:00 Intake Total 0 ml 240 ml Output Total 250 ml Balance -250 ml 240 ml Intake Oral 240 ml IV Total 0 ml Output Urine Total 250 ml # Voids 2 Result Diagram: 09/24/17 0530 09/24/17 0530 Objective Remarks GENERAL: Patient lying flat in bed. Appears comfortable. Alert and oriented 3. SKIN: Warm and dry. HEAD: Normocephalic. EYES: No scleral icterus. No injection or drainage. NECK: Supple, trachea midline. No JVD. CARDIOVASCULAR: Regular rate and rhythm without murmurs, gallops, or rubs. RESPIRATORY: Breath sounds equal bilaterally. No accessory muscle use. GASTROINTESTINAL: Abdomen soft, non-tender, nondistended. MUSCULOSKELETAL: No cyanosis, or edema. BACK: Nontender without obvious deformity. No CVA tenderness. A/P Assessment and Plan COPD exacerbation Community-acquired pneumonia. -Improving. Continue antibiotics, duo nebs, steroids. NSTEMI -Status post cath with stenting of RCA. Appreciate cardiology assistance. Continue aspirin, JOCE inhibitor, beta-sola. Likely discharge home tomorrow when cleared by cardiology. Discharge Planning Discharge home tomorrow when cleared by cardiology. Francisco Rosario MD Sep 24, 2017 15:07
[2017-09-24] MEDS: RESP: ALBUTEROL 2.5 MG/IPRATROPIUM 0.5 MG NEB (PRN) NEB (15:24)
[2017-09-24] MEDS: predniSONE 20 MG TAB PO SCH (20:34)
[2017-09-24] MEDS: CARVEDILOL 3.125 MG TAB PO SCH (20:35)
[2017-09-24] MEDS ORDERED: ATORVASTATIN 10 MG TAB PO SCH (21:00)
[2017-09-25] VITALS (13 sets, daily range): BP systolic 135–179; BP diastolic 78–114; PULSE 60–87; RESP 18; TEMP 97.8–98.4; O2SAT 94–96
--- NOTE | 2017-09-25 00:53 | EKG ---
Date Performed: 09/23/2017 Time Performed: 15:40:00 PTAGE: 71 years EKG: Sinus rhythm INTRAVENTRICULAR CONDUCTION DELAY DIFFUSE ST-T CHANGES ABNORMAL ECG PREVIOUS TRACING : 09/22/2017 19.42 Since the prior tracing, there has been no significant woods DOCTOR: Hope Soliz Interpretating Date/Time 09/25/2017 00:53:04
[2017-09-25] MEDS: RESP: ALBUTEROL 2.5 MG/IPRATROPIUM 0.5 MG NEB (PRN) NEB (01:52)
--- NOTE | 2017-09-25 01:55 | EKG ---
Date Performed: 09/22/2017 Time Performed: 19:42:35 PTAGE: 71 years EKG: Sinus rhythm INTRAVENTRICULAR CONDUCTION DELAY ABNORMAL ECG PREVIOUS TRACING : 09/17/2009 13.37 DOCTOR: Hope Soliz Interpretating Date/Time 09/25/2017 01:54:23
[2017-09-25 06:44] LABS: AUTOMATED NEUTROPHIL # 7.3 TH/MM3 (1.8-7.7); HEMATOCRIT 37.4 % (39.0-51.0); HEMOGLOBIN 13.1 GM/DL (13.0-17.0); LYMPH % 14.1 % (9.0-44.0); LYMPHOCYTE # 1.3 TH/MM3 (1.0-4.8); MEAN CELL VOLUME 92.8 FL (80.0-100.0); MEAN CORPUSCULAR HEMOGLOBIN 32.5 PG (27.0-34.0); MEAN PLATELET VOLUME 8.5 FL (7.0-11.0); MONO % 8.6 % (0.0-8.0); MONOCYTE # 0.8 TH/MM3 (0-0.9); NEUT % 77.3 % (16.0-70.0); PLATELET COUNT 174 TH/MM3 (150-450); RED BLOOD COUNT 4.03 MIL/MM3 (4.50-5.90); RED CELL DISTRIBUTION WIDTH 13.3 % (11.6-17.2); WHITE BLOOD COUNT 9.4 TH/MM3 (4.0-11.0)
[2017-09-25 07:08] LABS: ALBUMIN 2.9 GM/DL (3.4-5.0); BICARBONATE 24.9 MEQ/L (21.0-32.0); CALCIUM 8.1 MG/DL (8.5-10.1); CREATININE 0.71 MG/DL (0.60-1.30); DIRECT BILIRUBIN ADULT 0.1 MG/DL (0.0-0.2)
[2017-09-25 07:11] LABS: CHOLESTEROL/ HDL RATIO 2.99 RATIO; HDL CHOLESTEROL 46.8 MG/DL (40.0-60.0); INDIRECT BILIRUBIN 0.3 MG/DL (0.0-0.8); TOTAL BILIRUBIN ADULT 0.4 MG/DL (0.2-1.0)
[2017-09-25] MEDS ORDERED: RAMIPRIL 2.5 MG CAP PO SCH (09:00)
[2017-09-25] MEDS: SODIUM CHLORIDE 0.9% FLUSH 10 ML FLUSH IV FLUSH SCH (09:00)
[2017-09-25] MEDS ORDERED: ASPIRIN 81 MG CHEW TAB PO SCH (09:00)
--- NOTE | 2017-09-25 09:11 | ECHRPT ---
Indication: HEART FAILURE CONCLUSIONS Normal left ventricular size. Wall thickness is normal. The left ventricular systolic function is low normal with an estimated ejection fraction of 50%. Mild to moderate mitral valve regurgitation. Mild aortic valve regurgitation. BP: 149 / 87 HR: 68 Rhythm: MEASUREMENTS (Male / Female) Normal Values Technical Quality:Good 2D ECHO LV Diastolic Diameter PLAX 5.4 cm 4.2 - 5.9 / 3.9 - 5.3 cm LV Systolic Diameter PLAX 4.3 cm IVS Diastolic Thickness 1.3 cm 0.6 - 1.0 / 0.6 - 0.9 cm LVPW Diastolic Thickness 0.7 cm 0.6 - 1.0 / 0.6 - 0.9 cm LV Relative Wall Thickness 0.4 RV Internal Dim ED PLAX 2.6 cm LA Systolic Diameter LX 3.8 cm 3.0 - 4.0 / 2.7 - 3.8 cm DOPPLER Mitral E Point Velocity 107.0 cm/s Mitral A Point Velocity 45.4 cm/s Mitral E to A Ratio 2.4 TR Peak Velocity 206.0 cm/s TR Peak Gradient 17.0 mmHg FINDINGS LEFT VENTRICLE Normal left ventricular size. Wall thickness is normal. The left ventricular systolic function is low normal with an estimated ejection fraction of 50%. RIGHT VENTRICLE Normal right ventricular size and systolic function. LEFT ATRIUM The left atrial size is normal. RIGHT ATRIUM The right atrial size is normal. ATRIAL SEPTUM Normal atrial septal thickness without atrial level shunting by limited color doppler interrogation. AORTA The aortic root and proximal ascending aorta are normal in size on limited imaging. MITRAL VALVE Mild to moderate mitral valve regurgitation. AORTIC VALVE Mild aortic valve regurgitation. TRICUSPID VALVE Structurally normal tricuspid valve. No tricuspid valve stenosis or regurgitation. PULMONARY VALVE The pulmonary valve is not well visualized. VESSELS The inferior vena cava is normal in size. PERICARDIUM No pericardial effusion. Hope Soliz MD, FACC (Electronically Signed) Final Date:25 September 2017 09:10
[2017-09-25] MEDS: DOCUSATE SODIUM 100 MG CAP PO SCH (10:41)
[2017-09-25] MEDS: PANTOPRAZOLE SOD 40 MG DELAYED RELEASE TAB PO SCH (10:41)
[2017-09-25] MEDS: LEVOFLOXACIN 750 MG TAB PO SCH (10:41)
[2017-09-25] MEDS: predniSONE 20 MG TAB PO SCH (10:42)
[2017-09-25] MEDS: CARVEDILOL 3.125 MG TAB PO SCH (10:42)
[2017-09-25] MEDS ORDERED: CARV3.125 PO (10:59)
[2017-09-25] MEDS ORDERED: AMLO10 PO (10:59)
[2017-09-25] MEDS ORDERED: RAMI2.5C PO (10:59)
[2017-09-25] MEDS ORDERED: ASPI81 PO (10:59)
[2017-09-25] MEDS ORDERED: LEVA750T9 PO (10:59)
[2017-09-25] MEDS ORDERED: PRED20 PO (10:59)
[2017-09-25] MEDS ORDERED: PLAV75TA29 PO (11:05)
[2017-09-25] MEDS ORDERED: CLOPIDOGREL 75 MG TAB PO SCH (11:15)
--- NOTE | 2017-09-25 14:03 | EKG ---
Date Performed: 09/24/2017 Time Performed: 11:41:18 PTAGE: 71 years EKG: Normal Sinus rhythm of 85 bpm Prolonged corrected QT interval, consider anterolateral ischemia vs nonspecific ST-T wave changes. PREVIOUS TRACING : 09/23/2017 15.40 DOCTOR: Michele David Interpretating Date/Time 09/25/2017 14:02:50
--- NOTE | 2017-09-25 14:05 | EKG ---
Date Performed: 09/25/2017 Time Performed: 05:42:22 PTAGE: 71 years EKG: Sinus rhythm IV conduction defect Possible LVH with secondary repolarization abnormality Extensive ST-T changes m ay be due to hypertrophy and/or ischemia Prolonged corrected QT interval Abnormal ECG PREVIOUS TRACING : 09/24/2017 11.41.18 DOCTOR: Michele David Interpretating Date/Time 09/25/2017 14:03:36
--- NOTE | 2017-09-25 17:12 | PD.CARD.PN ---
Subjective Subjective Remarks denies chest pain, assymptomatic Objective Vital Signs / I&O Vital Signs Date Time Temp Pulse Resp B/P (MAP) Pulse Ox O2 Delivery O2 Flow Rate FiO2 09/25/17 13:00 64 09/25/17 11:00 68 09/25/17 10:00 69 09/25/17 09:00 76 09/25/17 09:00 74 09/25/17 08:00 68 09/25/17 07:50 97.8 65 18 155/94 (114) 95 09/25/17 07:00 64 09/25/17 05:21 60 09/25/17 03:00 98.0 69 135/78 (97) 94 09/25/17 03:00 68 09/25/17 02:00 68 09/25/17 01:00 78 09/25/17 00:39 98.4 87 179/114 (135) 96 09/25/17 00:00 72 09/24/17 23:00 70 09/24/17 22:00 68 09/24/17 21:00 68 09/24/17 20:00 68 09/24/17 19:00 98.1 73 160/90 (113) 95 09/24/17 19:00 71 09/24/17 17:14 78 I/O 09/24/17 09/24/17 09/24/17 09/25/17 09/25/17 09/25/17 07:00 15:00 23:00 07:00 15:00 23:00 Intake Total 240 ml 720 ml Balance 240 ml 720 ml Intake Oral 240 ml 720 ml # Voids 2 Laboratory Laboratory Tests Test 09/25/17 05:14 White Blood Count 9.4 TH/MM3 Red Blood Count 4.03 MIL/MM3 Hemoglobin 13.1 GM/DL Hematocrit 37.4 % Mean Corpuscular Volume 92.8 FL Mean Corpuscular Hemoglobin 32.5 PG Mean Corpuscular Hemoglobin Concent 35.0 % Red Cell Distribution Width 13.3 % Platelet Count 174 TH/MM3 Mean Platelet Volume 8.5 FL Neutrophils (%) (Auto) 77.3 % Lymphocytes (%) (Auto) 14.1 % Monocytes (%) (Auto) 8.6 % Eosinophils (%) (Auto) 0.0 % Basophils (%) (Auto) 0.0 % Neutrophils # (Auto) 7.3 TH/MM3 Lymphocytes # (Auto) 1.3 TH/MM3 Monocytes # (Auto) 0.8 TH/MM3 Eosinophils # (Auto) 0.0 TH/MM3 Basophils # (Auto) 0.0 TH/MM3 CBC Comment DIFF FINAL Differential Comment Blood Urea Nitrogen 20 MG/DL Creatinine 0.71 MG/DL Random Glucose 110 MG/DL Total Protein 6.0 GM/DL Albumin 2.9 GM/DL Calcium Level 8.1 MG/DL Alkaline Phosphatase 69 U/L Aspartate Amino Transf (AST/SGOT) 8 U/L Alanine Aminotransferase (ALT/SGPT) 16 U/L Total Bilirubin 0.4 MG/DL Direct Bilirubin 0.1 MG/DL Sodium Level 143 MEQ/L Potassium Level 3.6 MEQ/L Chloride Level 109 MEQ/L Carbon Dioxide Level 24.9 MEQ/L Anion Gap 9 MEQ/L Estimat Glomerular Filtration Rate 109 ML/MIN Indirect Bilirubin 0.3 MG/DL Total Creatine Kinase 36 U/L B-Type Natriuretic Peptide 377 PG/ML Triglycerides Level 110 MG/DL Cholesterol Level 140 MG/DL LDL Cholesterol 71 MG/DL HDL Cholesterol 46.8 MG/DL Cholesterol/HDL Ratio 2.99 RATIO Imaging GENERAL: SKIN: Warm and dry. HEAD: Normocephalic. EYES: No scleral icterus. No injection or drainage. NECK: Supple, trachea midline. No JVD or lymphadenopathy. CARDIOVASCULAR: Regular rate and rhythm without murmurs, gallops, or rubs. RESPIRATORY: Breath sounds equal bilaterally. No accessory muscle use. GASTROINTESTINAL: Abdomen soft, non-tender, nondistended. MUSCULOSKELETAL: No cyanosis, or edema. BACK: Nontender without obvious deformity. No CVA tenderness. Assessment and Plan Problem List: (1) NSTEMI (non-ST elevated myocardial infarction) ICD Codes: I21.4 - Non-ST elevation (NSTEMI) myocardial infarction (2) CAD (coronary artery disease) ICD Codes: I25.10 - Atherosclerotic heart disease of [place] coronary artery without angina pectoris (3) Pacemaker ICD Codes: Z95.0 - Presence of cardiac pacemaker Assessment and Plan 1.) CAD - pod #1 s/p pci ostial rca bms, assymptomatic, dc on aspirin, plavix, d /w patient, nurse and hospitalist, patient to f/u with me in my office 09/27/17 Michele David MD Sep 25, 2017 17:12
--- NOTE | 2017-09-26 10:12 | MA ---
cc: ATD FERNANDEZ M.D. DATE: 09/24/2017 PROCEDURE: Left heart catheterization, left ventriculography, coronary artery, PCI bare metal stent of the ostial right coronary artery. INDICATIONS Non-STEMI, coronary artery disease. Anginal equivalent. DESCRIPTION OF PROCEDURE: The patient was brought to the Cardiac Catheterization Laboratory, prepped and draped in the usual sterile fashion, 10 cc of 1% lidocaine was used to locally anesthetize the right common femoral artery. A 4 Norwegian sheath placed in the right common femoral artery. A 4-Norwegian JR-4, JL-4 catheter was used perform left and right coronary angiography and left ventriculography. FINDINGS: The LV pressures 145/15/19. Ejection fraction 50-55%. The right coronary is dominant and is fibrocalcific in the ostial proximal and mid segments. It is subtotally occluded at the ostium with DEANA-2 flow into the mid to distal vessel. The left main coronary has a distal 40% stenosis. Left circumflex vessel has a mid 90% stenosis. It then goes on to supply a medium to large marginal vessel which has multiple bifurcations. This marginal vessel has an ostial proximal 20% stenosis. The larger of the vessels is more lateral and is probably a reference vessel diameter of at least 3 mm in diameter. The more medial branch has about a 2.5 mm reference vessel diameter. The LAD is transapical and supplies [id number] collaterals to the right PDA and DANIEL. The proximal LAD has a 70-75% stenosis. Distal to this lesion, there is a medium size diagonal vessel which has a proximal 20 to 30% stenosis. The LAD at the bifurcation with this diagonal vessel has at least a 50 to 60% stenosis. There is tapering of the reference vessel diameter from about 3 millimeters in diameter to about 2 to 2.5 mm diameter beyond the diagonal vessel. The first diagonal artery is a medium size vessel which has a proximal bifurcation. The more lateral branch of the bifurcation has a proximal 30-40% stenosis about 45 degrees angulation off the medial branch which has no significant disease. DISCUSSION The patient is not diabetic, has preserved LV systolic function. I explained to the patient that options would include coronary artery bypass graft procedure versus high-risk attempted intervention of the right coronary artery. I consulted Dr. Kimberlyn Cisneros. We reviewed the films. The plan was to attempt high-risk PCI of the ostial right coronary artery with surgical backup. This was explained to the patient. He understood and agreed. Therefore, a 4-Norwegian sheath exchanged for the 6-Norwegian sheath, 70 units per kilo of heparin was given, ACT 245. An additional 1500 units of heparin was given. Final ACT 281. A 6-Norwegian JR-4 guide with side holes and a 0.014 [place] guidewire were used to cross the ostial right coronary artery stenosis. The lesion was attempted to be predilated with a 2-0 12 compliant Euphora balloon. We did two inflations up to 18 atmospheres, however, it was difficult to balloon the ostial segment due to persistent watermelon seeding. I then used a 2-5, 20 noncompliant Euphora balloon. We did three inflations of up to 18 atmospheres for 20 seconds. At that point and time DEANA-3 flow ensued, however, there was still high-grade stenosis of up to 95%. We then plan to do stent placement with the understanding that there may possibly be stent after deployment and then if that were the case to proceed with CABG. Fortunately the stent was able to be fully deployed. A 3-0 18 Integrity stent, deployed at one inflation, 16 atmospheres for 20 seconds. I then post dilated the ostial proximal segment of the stent with a 3-5 12 noncompliant Euphora balloon 14 atmospheres for 20 seconds. Stenosis went from 99% with DEANA-2 flow to 0% with DEANA-3 flow. The patient tolerated the procedure well, remained hemodynamically stable. Systolic pressure actually increased to 10 mmHg after improved revascularization. CONCLUSION 1. Non STEMI, culprit subtotally occluded ostial right coronary artery as detailed above, otherwise severe three vessel coronary artery disease as detailed above. 2. LV systolic function ejection fraction 65%. 3. Recommend Plavix 600 milligrams p.o. load and then 75 milligrams a day for 12 to 15 months. Aspirin 162 milligrams daily indefinitely. 4. Will check fasting lipid profile, NCP guidelines. The patient will follow up with my office on 09/27/17 for further evaluation and management to determine if the left circ and/or LAD needs to be revascularized. MD RICARDO Griffin/TIA /10:48 AM /7:28 AM
[2017-09-26] MEDS ORDERED: IOHEXOL 350 MG/ML 100 ML BTL (for Cath Lab) OTHER ONE (13:10)
[2017-09-26] MEDS ORDERED: IOHEXOL 350 MG/ML 50 ML BTL (for Cath Lab) OTHER ONE (13:10)
== END 2017-09-25 13:11 | disposition home or self-care (01) | DRG 248 ==
LOC: NEPE 19:19 → NEDA 22:28 → NEDH 09-23 02:39 → NEPGCP 09-23 12:52 → HCIS 09-24 10:45 → OBSVTOIN 09-24 11:01 → HCIS 09-24 16:53
PROVIDERS: ADMIT Hospitalist; ATTEND Hospitalist
PROC: 4A023N7 Measurement of Cardiac Sampling and Pressure, Left Heart, Percutaneous Approach (ICD-10-PCS; 2017-09-24)
PROC: B2111ZZ Fluoroscopy of Multiple Coronary Arteries using Low Osmolar Contrast (ICD-10-PCS; 2017-09-24)
PROC: B2151ZZ Fluoroscopy of Left Heart using Low Osmolar Contrast (ICD-10-PCS; 2017-09-24)
PROC: 02703DZ Dilation of Coronary Artery, One Artery with Intraluminal Device, Percutaneous Approach (ICD-10-PCS; principal; 2017-09-24 09:45)
DX: I21.4 Non-ST elevation (NSTEMI) myocardial infarction (principal); J18.9 Pneumonia, unspecified organism; R06.03 Acute respiratory distress; J44.0 Chronic obstructive pulmonary disease with (acute) lower respiratory infection; I69.351 Hemiplegia and hemiparesis following cerebral infarction affecting right dominant side; J45.901 Unspecified asthma with (acute) exacerbation; J44.1 Chronic obstructive pulmonary disease with (acute) exacerbation; I25.118 Atherosclerotic heart disease of native coronary artery with other forms of angina pectoris; E11.9 Type 2 diabetes mellitus without complications; K21.9 Gastro-esophageal reflux disease without esophagitis; I10 Essential (primary) hypertension; G47.30 Sleep apnea, unspecified; M19.90 Unspecified osteoarthritis, unspecified site; F41.9 Anxiety disorder, unspecified; F32.9 Major depressive disorder, single episode, unspecified; E78.5 Hyperlipidemia, unspecified; Z95.0 Presence of cardiac pacemaker; R05 Cough
CPT/HCPCS: 71045; 71275; 80048; 80061; 80076; 82550; 83735; 83880; 84484; 85002; 85025; 85027; 87070; 87205; 87804; 92928; 93005; 93306; 93458; 94640; 94664; 96374; 96376; 99152; 99153; C1725; C1769; C1876; C1887; C1893; G0378; G8987-GP; G8988-GP; G8989-GP; J1644; J2250; J2920; J2930; J3010; J3246; J7512; Q9967